=== PATIENT | female | born 1990 | race Caucasian/White ===

== ENCOUNTER 2021-04-02 19:58 | Emergency (ER) | payer BC, SELFPAY ==
[2021-04-02 19:59] VITALS: BP 122/75; PULSE 95; RESP 18; TEMP 36.7; O2SAT 100; BMI 25.0
--- NOTE | 2021-04-02 20:16 | RAD_ITS ---
EXAM: XR Left Knee, 3 Views CLINICAL INDICATION: 30 years old, Female; injury TECHNIQUE: Three views of the left knee. This report was created using [employer] report generation technology. COMPARISON: None. FINDINGS: Bones/joints: Unremarkable. No acute fracture. No subluxation. Normal alignment. Preservation of the joint space. No sclerotic or destructive changes observed. Soft tissues: Unremarkable. No soft tissue swelling or gas. No radiopaque foreign body. RAD/Knee 3 Views IMPRESSION: Negative left knee x-rays. ASSESSMENT: NEGATIVE report - No abnormal findings. Electronically Signed: Karan Craven MD at 20:48 EDT Tel , Service support ,
--- NOTE | 2021-04-02 22:12 | EX.ED.DYSGE1 ---
HPI History of Present Illness Chief Complaint: Lower Extremity Injury Informant: patient and spouse/S.O. Narrative Narrative: Was jumping on a trampoline. She landed in an abnormal angle. She felt a popping sensation in her left knee. Its been sore since. Most of the pain is actually in the posterior aspect of the knee. Its not down to the ankle or calf. Does not up in the thigh. She is able to bear weight but it sore. She is able to straighten the knee but it hurts a lot to do so. She has no prior history of injury to this knee. No other injury occurred. Holding it still makes it better and motion or weightbearing makes it a bit worse. [facility] Medical History ADHD Home Medications dextroamphetamine-amphetamine [Adderall] 10 mg PO DAILY 04/02/21 [History Last Taken Unknown] naproxen [Naprosyn] 500 mg PO BID PRN #20 tab 04/02/21 [Rx Last Taken Unknown] Allergy/AdvReac Type Severity Reaction Status Date / Time No Known Allergies Allergy Verified 04/02/21 20:01 Social History Smoking Status: Never smoker ROS ROS ED Constitutional Constitutional ED: Denies fever(s) Gastrointestinal Gastrointestinal: Denies nausea or vomiting Musculoskeletal Musculoskeletal: Reports arthralgias; Denies back pain, myalgias or neck pain Integumentary Denies abscess or rash Neurologic Neurologic: Denies paresthesias or weakness EXAM Physical Exam Const Vital Signs: 04/02/21 19:59 Temperature 98.0 F Temperature Source Temporal Pulse Rate 95 Respiratory Rate 18 Blood Pressure 122/75 H Blood Pressure Mean 90 Pulse Ox 100 Oxygen Delivery Method Room Air Positive well nourished and well developed General Appearance ED: well developed and NAD HEENT Negative for trauma Resp normal respiratory effort Back/Spine Cervical Spine: Negative for cervical spine tenderness Thoracic Spine / Upper Back: Negative for thoracic spinal tenderness Extremity Extremity Narrative: No tenderness at the ankle. Achilles is intact by palpation and Sanchez test. There is no calf tenderness. There is tenderness diffusely in the posterior aspect of the knee but it does not appear to be swollen. I feel no enlarged pulse. There is really no joint line tenderness. Exam is limited somewhat due to pain. However, I get no instability with varus valgus or Juan. Range of motion is limited due to discomfort. General Extremety ED: Negative for edema General Extremity: Negative for edema Neuro oriented x3 Sensorium / Orientation: alert MDM MDM MDM Narrative Medical decision making narrative: Three-view x-ray left knee looked at by me and read by radiology shows no acute process. Patient will be treated with rest ice nonsteroidals. She will follow up with orthopedics. She still may have an internal injury. However her knee does appear to be stable to exam at this time considering a limitation of exam due to discomfort. Patient is calm and quiet sitting in bed. She is not in marked pain sitting there. She may need further evaluation, MRI etc. Since her knee does not appear to be unstable, we will not use a knee immobilizer to avoid stiffness. Radiography Diagnostic Testing: Radiology Impression Knee X-Ray 04/02/21 20:16 IMPRESSION: Negative left knee x-rays. ASSESSMENT: NEGATIVE report - No abnormal findings. Electronically Signed: Karan Craven MD at 20:48 EDT Tel , Service support , Discharge Plan Triage Chief Complaint: Lower Extremity Injury ED Provider: Saurav De La Paz Dx/Rx/DC Orders Clinical Impression: Injury of knee, left Prescriptions: New naproxen [Naprosyn] 500 mg tablet 500 mg PO BID PRN (Reason: pain) Qty: 20 RF: 0 No Action dextroamphetamine-amphetamine [Adderall] 10 mg Tablet 10 mg PO DAILY RF: 0 Primary Care Provider: Cyn Vu NP Referrals: Dominguez Torres DO [STAFF PHYSICIAN] - As soon as possible Cyn Vu NP, MEDICAL DIRECTOR OF [facility]PICE[facility] [Primary Care Provider] - As Needed Disposition Disposition: Home, Self Care
[2021-04-02] MEDS: Naproxen 250 MG Tablet 500 MG PO (22:38)
[2021-04-02 22:39] VITALS: PULSE 85; RESP 16; O2SAT 100
== END 2021-04-02 22:50 | disposition home or self-care (01) ==
LOC: ED 22:20
PROVIDERS: Emergency Provider Emergency Medicine; PCP Nurse Practitioner Family
DX: S89.92XA Unspecified injury of left lower leg, initial encounter (principal); Y93.44 Activity, trampolining; F90.9 Attention-deficit hyperactivity disorder, unspecified type; Z79.1 Long term (current) use of non-steroidal anti-inflammatories (NSAID); X50.1XXA Overexertion from prolonged static or awkward postures, initial encounter
CPT/HCPCS: 73562; 99283

== ENCOUNTER → 2021-04-28 15:19 | Outpatient (CLI) | payer BC, SELFPAY ==
--- NOTE | 2021-04-28 15:23 | VDLE_ITS ---
Reason For Study: Pain Procedure LEFT This is a venous duplex using B-mode, color GSV is normal. flow and spectral Doppler. CFV is compressible, spontaneous, phasic, Exam performed in department. competent, and demonstrates normal A preliminary report was called and/or faxed augmentation. to Dr. Talbert. FV is compressible, spontaneous, phasic, competent and demonstrates normal augmentation. POP V is compressible, spontaneous, phasic, competent and demonstrates normal augmentation. T/P Trunk is compressible. PTV is compressible. LT PerV is compressible. VL/Venous Duplex US, Unilateral Interpretation Summary There is no evidence of left lower extremity deep vein thrombosis. Left great s aphenous vein appears patent and compressible segmentally. Ordering Physician: Wilbur Talbert Referring Physician: Cyn Vu Performed By: Kim Aguilar, ANKUR, RVT
== END ==
PROVIDERS: PCP Nurse Practitioner Family; Visit Provider Orthopaedic Surgery
DX: M79.662 Pain in left lower leg (principal)
CPT/HCPCS: 93971